=== PATIENT | male | born 1960 | race Caucasian/White ===

== ENCOUNTER 2018-04-14 10:46 | Emergency (ER) | payer OTHER ==
[~2018-04-14] VITALS: Ht 180.3 cm; Wt 95.3 kg
[2018-04-14] MEDS ORDERED: SIMVASTATIN5 MG (11:33)
[2018-04-14] MEDS ORDERED: MELOXICAM7.5 MG (11:33)
[2018-04-14] MEDS ORDERED: LISINOPRIL5 MG (11:33)
[2018-04-14] MEDS ORDERED: DIAZEPAM10 MG PO (12:17)
[2018-04-14] MEDS ORDERED: NEURONTIN300 MG PO (12:17)
== END 2018-04-14 12:43 | disposition home or self-care (01) ==
LOC: ER 10:46
DX: M54.41 Lumbago with sciatica, right side (principal)